=== PATIENT | male | born 1995 | race Two or more races ===

== ENCOUNTER → 2024-05-26 | Outpatient (CLI) | payer BC, SELFPAY ==
--- NOTE | 2024-05-26 08:45 | XR_ITS ---
Examination: Abdomen sonogram, complete Date and time of exam: May 26, 2024 0905 hours INDICATIONS: Elevated liver function tests on laboratory examination performed one month ago, diagnosis testicular carcinoma 2 years ago. Technique: Multiple real-time grayscale transabdominal sonographic images of the abdomen have been obtained. Findings: Normal gallbladder Normal common bile duct 0.5 cm Pancreatic head 2.5 cm Aorta not enlarged Liver 14.4 cm fatty infiltration no focal liver lesions Normal hepatopedal portal venous oh Patent IVC Right kidney 12.7 x 6.8 x 6.8 cm renal cortex 1.8 cm Left kidney 13.9 x 6.0 x 4.7 cm cortex 2.0 cm Mild bilateral renal parenchymal scar formation Spleen 12.7 cm IMPRESSION: Normal gallbladder Fatty liver no focal liver lesions Mild bilateral renal parenchymal scar formation, no hydronephrosis
[2024-05-26 10:44] LABS: Basophils % (Auto) 1 % (0-2.5); Eosinophils # (Auto) 0.1 Thou/mm3 (0.0-0.5); Eosinophils % (Auto) 2 % (0-10); Hemoglobin 15.6 g/dL (13.5-16.0); Immature Granulocytes % (Auto) 1 % (0-0); Immature Granulocytes Auto 0.04 Thou/mm3 (0.00-0.00); Lymphocytes # (Auto) 2.3 Thou/mm3 (1.0-4.8); Lymphocytes % (Auto) 35 % (10-50); Mean Corpuscular HGB Conc 34.7 g/dl (31.0-37.0); Mean Corpuscular Hemoglobin 29.1 pg (25.0-35.0); Mean Corpuscular Volume 84 fL (80-100); Monocytes # (Auto) 0.6 Thou/mm3 (0.0-0.8); Monocytes % (Auto) 9 % (0-12); Neutrophils # (Auto) 3.6 Thou/mm3 (1.8-7.7); Neutrophils % (Auto) 54 % (37-80); Nucleated Red Blood Cell % 0 /100 WBC (0); Platelet Count 223 Thou/mm3 (140-440); RDW Standard Deviation 35.8 fL (35.1-43.9); Red Blood Count 5.37 Miln/mm3 (4.50-5.90); White Blood Count 6.6 Thou/mm3 (3.8-10.6)
[2024-05-26 11:20] LABS: Alanine Aminotransferase 236 U/L (10-49); Albumin, Serum 4.6 gm/dL (3.5-5.0); Albumin/Globulin Ratio 1.8 (1.2-2.2); Alkaline Phosphatase 82 U/L (46-116); Anion Gap 4 (7-16); Aspartate Amino Transferase 89 U/L (0-34); BUN/Creatinine Ratio 10 Ratio (12-20); Bilirubin,Total 0.5 mg/dL (0.3-1.2); Blood Urea Nitrogen 11 mg/dL (9-23); Carbon Dioxide 30.6 mMol/L (20.0-31.0); Chloride 104 mMol/L (98-107); Creatinine (Component) 1.1 mg/dL (0.6-1.3); Globulin 2.5 gm/dL (2.3-3.5); Glucose 99 mg/dL (74-106); Osmolality,Calculated 276 (275-295); Potassium 5.2 mMol/L (3.4-5.1); Sodium 139 mMol/L (136-145); Total Protein 7.1 gm/dL (5.7-8.2); eGFR > 60 See Note
[2024-05-26 12:11] LABS: Hepatitis A Antibody IgM Non Reactive (Non React); Hepatitis B Core Antibody IgM Non Reactive (Non React); Hepatitis B Surface Antigen Non Reactive (Non React); Hepatitis C Antibody Non Reactive (Non React)
== END | disposition home or self-care (01) ==
LOC: CDIM 08:51 → COPL 09:21
PROVIDERS: PCP Nurse Practitioner Family; Referring Provider Nurse Practitioner Family; Visit Provider Radiology Diagnostic Radiology
DX: K76.0 Fatty (change of) liver, not elsewhere classified (principal); N28.89 Other specified disorders of kidney and ureter; C62.12 Malignant neoplasm of descended left testis
CPT/HCPCS: 36415; 76700; 80053; 80074; 85025

== ENCOUNTER 2024-06-14 13:42 | Outpatient (RCR) | payer BC, SELFPAY | END 2024-07-06 23:59 | disposition home or self-care (01) | LOC: SCTC 13:42 | PROVIDERS: PCP Physician Assistant; Referring Provider Physician Assistant; Visit Provider Nurse Practitioner Family | DX: Z08 Encounter for follow-up examination after completed treatment for malignant neoplasm (principal); Z85.47 Personal history of malignant neoplasm of testis; Z90.79 Acquired absence of other genital organ(s); Z92.21 Personal history of antineoplastic chemotherapy; K76.0 Fatty (change of) liver, not elsewhere classified; E66.9 Obesity, unspecified; Z68.36 Body mass index [BMI] 36.0-36.9, adult | CPT/HCPCS: 99212; G0463 ==

== ENCOUNTER 2025-03-23 11:52 | Outpatient (RCR) | payer MEDICAID, SELFPAY ==
--- NOTE | 2025-03-28 00:11 | CTCFLWUP_ITS ---
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 S/p left radical orchiectomy on 04/18/2021. S/p 1 cycle of BEP chemotherapy and 3 cycles of EP chemotherapy (05/12/2021?08/17/2021) CT, no interval metastatic disease, 02/12/2024 Obesity, 260lb, 36.3 BMI REASON FOR TODAY?S VISIT: This is an office follow-up visit for US results and lab results. 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 S/p left radical orchiectomy on 04/18/2021. TREATMENT HISTORY: Care?Plan Start?Date Cycle Day Intent Cisplat?Etoposide?Bleomycin?q21?days?3?cycles 05/22/2021 1 21 Curative?(adjuvant) Cisplat?Etoposide?Bleomycin?q21?days?3?cycles 08/13/2021 1 21 Curative?(primary) HISTORY OF PRESENT ILLNESS: This is an office follow-up visit. Mr. Young is here at [facility] cancer center. He is clinically doing well. LFTs are trending down, US of abdomen shows fatty liver, no liver lesions, 05/26/2024. Patient denies abdominal pain nausea vomiting. Patient reports he rarely drinks alcohol. CT of abdomen on 02/12/2024 showed no interval liver or splenic lesions. Patient r emains asymptomatic. Patient reports good appetite and energy levels. Denies any complaints or concerns. Patient denies recent illness. Denies any cough, leg cramps. Denies any fevers or night sweats. HISTORY: Wilber Young is a 29-year-old ENG speaking male without any significant health problems started to have testicular pain in the early part of February 2021. 02/13/2021: Testicular ultrasound? 03/08/2021: LDH 203. AFP 402.10. Beta-hCG 145. March 2021: Patient had sperm banking done in [place]. 04/03/2021: CT scan of the abdomen and pelvis with IV contrast? 04/03/2021: Chest x-ray PA and lateral views? 04/18/2021: Mr. Young had left radical orchiectomy. 04/27/2021: LDH 193, AFP 135.60, beta-hCG 30. 05/10/2021: LDH 216, AFP 36.4, beta-hCG 38. 05/15/2021: AFP 25.1, beta-hCG 27 05/22/2021: Patient received first cycle of BEP chemotherapy. Beta-hCG 28, AFP 25.3 05/29/2021: Pulmonary function test? 06/18/2021?08/17/2021: Mr. Young received 3 cycles of etoposide and cisplatin chemotherapy. 07/09/2021: AFP 3.7, beta-hCG less than 3 07/12/2021: Repeat pulmonary function test 10/01/2021: AFP less than 1.3, beta-hCG less than 3 02/11/2022: AFP 1.70. Beta-hCG less than 3. 07/12/2022: CT scan of the abdomen and pelvis with IV contrast 07/15/2022: AFP 1.4, beta-hCG pending. 09/18/2022: CT abdomen/pelvis Impression: Multiple stable lymph nodes measuring up to 8 mm as above. No other focal abnormality. 02/04/2023: CT abdomen/pelvis Findings: No focal liver lesions or biliary tract dilatation No gallstones No splenic pancreatic or adrenal mass No renal or ureteral calculi, no hydronephrosis Stable subcentimeter left lateral periaortic lymph nodes, the largest 8 mm 3 mm left common iliac lymph node, 3 mm left external iliac lymph node No bowel obstruction Normal appendix No diverticulitis No prostatomegaly Urinary bladder intact Osseous structures intact IMPRESSION: Stable periaortic and pelvic subcentimeter lymphadenopathy compared to September 18, 2022 11/12/2023: AFP 1.40, Beta-HCG <5 02/12/2024:. Abdomen and pelvis with contrast 02/24/2024: AFP 2.60, beta-hCG <5, AST 57 ALT 148, T. bili 0.7 03/22/2024: Chest x-ray 03/22/2024: AFP 3.50, beta-hCG <5, AST 57, ALT 131, T. bili 0.5 04/27/2024: AFP <1.30, beta-hCG pending, AST 221, ALT 516, T. bili 0.7, alk phos 99 OTHER MEDICAL HISTORY/CONDITIONS: FAMILY HISTORY: ?Clone Family Hx? SOCIAL HISTORY: MEDICATIONS: 1. cyanocobalamin (vitamin B-12) - 1,000 mcg 1 tab Daily 2. [place] 3 - 350-400 mg 1 Capsule Daily 3. Vitamin C - 250 mg 1 tab Daily 4. Vitamin D3 - 400 unit 1 Capsule Daily?Palabra Meds? Medications Last Reconciled by Lin Monroy MA on 03/23/2025 ALLERGIES: No Known Drug Allergies REVIEW OF SYSTEMS: A complete 14-point review of systems was performed and is negative except as noted in interval history. PHYSICAL EXAMINATION: VITAL SIGNS: Temperature?98, B/P?134/93, Oxygen?Saturation?95% Weight?272?lbs PAIN: 0 - No pain ECOG Performance Status: 0 - Asymptomatic and fully active GENERAL APPEARANCE: Appears well, in no apparent distress, appropriately interactive. HEENT: Normocephalic, no temporal wasting, normal conjunctiva, no scleral icterus, normal hearing, lips without lesions, neck normal range of motion. CARDIOVASCULAR: Not assessed. PULMONARY: Normal respiratory effort, no respiratory distress or use of accessory muscles, speaking in full sentences, no tachypnea. EXTREMITIES: No pedal edema or cyanosis. SKIN: Normal skin appearance. NEUROLOGIC: Alert and oriented x4. PSHYCHIATRIC: Appropriate affect, mood normal, behavior normal, intact thought and speech. LABORATORY DATA: I have personally reviewed and interpreted each of the patient?s relevant lab tests, abnormal findings are below: Date 04/27/24 05/26/24 ??WHITE?BLOOD?COUNT?(Thou/mm3) 5.3 6.6 ??RED?BLOOD?COUNT?(Miln/mm3) 5.34 5.37 ??HEMOGLOBIN?(gm/dl) 15.6 15.6 ??HEMATOCRIT?(%) 46.3 45.0 ??PLATELET?COUNT?(Thou/mm3) 230 223 ??NEUTROPHILS?%,?AUTO?(%) 53 54 ??LYMPH?%,?AUTO?(%) 36 35 ??NEUTROPHILS,?AUTO?(Thou/mm3) 2.8 3.6 ??GLUCOSE,RANDOM?(mg/dL) 125?H 99 ??BLOOD?UREA?NITROGEN?(mg/dL) 14 11 ??CREATININE?(mg/dL) 1.10 1.10 ??SODIUM?(mmol/L) 139 139 ??POTASSIUM?(mmol/L) 4.3 5.2?H ??CHLORIDE?(mmol/L) 103 104 ??CrCl?(CandG)?(ml/min) 129.45 129.71 ??AST/SGOT?(Unit/L) 221?H 89?H ??ALT/SGPT?(Unit/L) 516?HH 236?H ??ALKALINE?PHOSPHATASE?(Unit/L) 99 82 ??BILIRUBIN,?TOTAL?(mg/dL) 0.7 0.5 ??PROTEIN?TOTAL?(gm/dl) 7.2 7.1 ??ALBUMIN,?SERUM?(gm/dl) 4.7 4.6 ??GLOBULIN?(gm/dl) 2.5 2.5 ??ALBUMIN/GLOBULIN?RATIO 1.9 1.8 ??CALCIUM,?SERUM?(mg/dL) 10.5 10.0 ??CALCIUM?SERUM?(CORRECTED)?(mg/dL) 10.5?H 10.0 ASSESSMENT/PLAN: 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 and invasion of the epididymis Status post left radical orchiectomy on 04/18/2021 Completed chemotherapy with 3 cycles of BAP Now on monitoring with labsc Patient follows with [facility] RTC with beta-hCG alpha-fetoprotein LDH CBC CMP Patient noted to have elevated alk phos and elevated calcium which has been present on multiple occasions Will evaluate with bone scan to make sure patient do not have any bone mets RTC with labs and imaging ORDERS: Order # Description [id number] Bone Scan, Whole body [id number] Comprehensive Metabolic Panel - 12 + CBC with Auto Diff [id number] AFP + bHCG - Quant (TM) [id number] Lactate Dehydrogenase (LDH) [id number] MD Follow Up 2 Months RETURN TO CLINIC: I reviewed the diagnosis, prognosis, and recommended treatment/procedure options with the patient (and/or their legal licensing representative), including the potential benefits, risks, side effects and alternative therapies. We also discussed the option of no treatment and the possibility of clinical trial participation, if applicable. All questions were addressed, and they demonstrated understanding. They provided informed consent to proceed with the proposed plan of care. BILLING AND COMPLIANCE: I reviewed external records from providers outside my specialty as summarized above. I spent a total of 50 minutes on this patient?s care on the day of their visit excluding time spent related to any billed procedures. This time includes time spent with the patient as well as time spent documenting in the medical record, reviewing patients records and tests, obtaining history, placing orders, communicating with other healthcare professionals, counseling the patient, family or caregiver, and/or care coordination for the diagnoses above. Electronically Signed by: Christopher Montgomery MD T: 12:09 AM CC: PCP: Christopher Montgomery Referring: Christopher Montgomery This document was completed utilizing speech recognition software. Grammatical errors, random word insertions, pronoun errors, and incomplete sentences are an occasional consequence of this system due to software limitations, ambient noise, and hardware issues. Any formal questions or concerns about the content, text or information contained within the body of this dictation should be directly addressed to the provider for clarification.
== END 2025-04-05 23:59 | disposition home or self-care (01) ==
LOC: SCTC 11:52
PROVIDERS: PCP Internal Medicine; Referring Provider Internal Medicine Hematology & Oncology; Visit Provider Internal Medicine Hematology & Oncology
DX: C62.12 Malignant neoplasm of descended left testis (principal); K76.0 Fatty (change of) liver, not elsewhere classified; Z90.79 Acquired absence of other genital organ(s); Z92.21 Personal history of antineoplastic chemotherapy
CPT/HCPCS: 99212; G0463

== ENCOUNTER → 2025-05-03 | Outpatient (CLI) | payer MEDICAID, SELFPAY ==
--- NOTE | 2025-05-03 12:30 | XR_ITS ---
Examination: Bone scan whole body, radioisotope Date and time of exam: May 03, 2025, 8 0821 hours INDICATIONS: Diagnosis malignant neoplasm of left testis 3 years ago, restaging Technique: Study has been performed with intravenous administration of 22.5 mci 99M technetium MDP. Anterior, posterior whole body images are obtained. Images have been obtained including the lower extremities. Findings: Positive for increased abnormal uptake in the proximal to mid tibial shaft on the left IMPRESSION: Positive for increased uptake in the proximal and mid left tibial shaft Recommend correlation with plain films
== END | disposition home or self-care (01) ==
PROVIDERS: PCP Internal Medicine; Referring Provider Internal Medicine Hematology & Oncology; Visit Provider Internal Medicine Hematology & Oncology
DX: R93.7 Abnormal findings on diagnostic imaging of other parts of musculoskeletal system (principal); C62.12 Malignant neoplasm of descended left testis
CPT/HCPCS: 78306; A9503

== ENCOUNTER 2025-05-25 11:43 | Outpatient (RCR) | payer MEDICAID, SELFPAY ==
--- NOTE | 2025-05-25 13:30 | CTCFLWUP_ITS ---
Patient: WILBER YOUNG : 1995 Page 2 of 2 FOLLOW UP NOTE DATE OF SERVICE: 05/25/2025 NAME: WILBER YOUNG ACCOUNT: [id number] : 1995 AGE: 29 INTERVAL HISTORY: Visit summary --29-year-old male here for follow-up. Patient do not have any complaints. Patient's calcium was elevated at last visit and bone scan was completed. Bone scan is concerning for activity in the tibial bone. X-rays ordered as per radiology recommendation RTC within 2 months to review the x-rays ONCOLOGY HISTORY:?[facility] Hx? 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 S/p left radical orchiectomy on 04/18/2021. S/p 1 cycle of BEP chemotherapy and 3 cycles of EP chemotherapy (05/12/2021?08/17/2021) CT, no interval metastatic disease, 02/12/2024 Obesity, 260lb, 36.3 BMI REASON FOR TODAY?S VISIT: This is an office follow-up visit for US results and lab results. 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 S/p left radical orchiectomy on 04/18/2021. TREATMENT HISTORY: Care?Plan Start?Date Cycle Day Intent Cisplat?Etoposide?Bleomycin?q21?days?3?cycles 05/22/2021 1 21 Curative?(adjuvant) Cisplat?Etoposide?Bleomycin?q21?days?3?cycles 08/13/2021 1 21 Curative?(primary) HISTORY OF PRESENT ILLNESS: This is an office follow-up visit. Mr. Young is here at [facility] cancer center. He is clinically doing well. LFTs are trending down, US of abdomen shows fatty liver, no liver lesions, 05/26/2024. Patient denies abdominal pain nausea vomiting. Patient reports he rarely drinks alcohol. CT of abdomen on 02/12/2024 showed no interval liver or splenic lesions. Patient r emains asymptomatic. Patient reports good appetite and energy levels. Denies any complaints or concerns. Patient denies recent illness. Denies any cough, leg cramps. Denies any fevers or night sweats. HISTORY: Wilber Young is a 29-year-old ENG speaking male without any significant health problems started to have testicular pain in the early part of February 2021. 02/13/2021: Testicular ultrasound? 03/08/2021: LDH 203. AFP 402.10. Beta-hCG 145. March 2021: Patient had sperm banking done in [place]. 04/03/2021: CT scan of the abdomen and pelvis with IV contrast? 04/03/2021: Chest x-ray PA and lateral views? 04/18/2021: Mr. Young had left radical orchiectomy. 04/27/2021: LDH 193, AFP 135.60, beta-hCG 30. 05/10/2021: LDH 216, AFP 36.4, beta-hCG 38. 05/15/2021: AFP 25.1, beta-hCG 27 05/22/2021: Patient received first cycle of BEP chemotherapy. Beta-hCG 28, AFP 25.3 05/29/2021: Pulmonary function test? 06/18/2021?08/17/2021: Mr. Young received 3 cycles of etoposide and cisplatin chemotherapy. 07/09/2021: AFP 3.7, beta-hCG less than 3 07/12/2021: Repeat pulmonary function test 10/01/2021: AFP less than 1.3, beta-hCG less than 3 02/11/2022: AFP 1.70. Beta-hCG less than 3. 07/12/2022: CT scan of the abdomen and pelvis with IV contrast 07/15/2022: AFP 1.4, beta-hCG pending. 09/18/2022: CT abdomen/pelvis Impression: Multiple stable lymph nodes measuring up to 8 mm as above. No other focal abnormality. 02/04/2023: CT abdomen/pelvis Findings: No focal liver lesions or biliary tract dilatation No gallstones No splenic pancreatic or adrenal mass No renal or ureteral calculi, no hydronephrosis Stable subcentimeter left lateral periaortic lymph nodes, the largest 8 mm 3 mm left common iliac lymph node, 3 mm left external iliac lymph node No bowel obstruction Normal appendix No diverticulitis No prostatomegaly Urinary bladder intact Osseous structures intact IMPRESSION: Stable periaortic and pelvic subcentimeter lymphadenopathy compared to September 18, 2022 11/12/2023: AFP 1.40, Beta-HCG <5 02/12/2024:. Abdomen and pelvis with contrast 02/24/2024: AFP 2.60, beta-hCG <5, AST 57 ALT 148, T. bili 0.7 03/22/2024: Chest x-ray 03/22/2024: AFP 3.50, beta-hCG <5, AST 57, ALT 131, T. bili 0.5 04/27/2024: AFP <1.30, beta-hCG pending, AST 221, ALT 516, T. bili 0.7, alk phos 99 OTHER MEDICAL HISTORY/CONDITIONS: FAMILY HISTORY: ?Clone Family Hx? SOCIAL HISTORY: MEDICATIONS: 1. cyanocobalamin (vitamin B-12) - 1,000 mcg 1 tab Daily 2. [place] 3 - 350-400 mg 1 Capsule Daily 3. Vitamin C - 250 mg 1 tab Daily 4. Vitamin D3 - 400 unit 1 Capsule Daily?[facility]ra Meds? Medications Last Reconciled by Lin Drew MD on 05/25/2025 ALLERGIES: No Known Drug Allergies REVIEW OF SYSTEMS: A complete 14-point review of systems was performed and is negative except as noted in interval history. PHYSICAL EXAMINATION:?[facility] PE? VITAL SIGNS: Temperature?98.6, B/P?132/86, Oxygen?Saturation?96% Weight?275?lbs PAIN: 0 - No pain ECOG Performance Status: 0 - Asymptomatic and fully active GENERAL APPEARANCE: Appears well, in no apparent distress, appropriately interactive. HEENT: Normocephalic, no temporal wasting, normal conjunctiva, no scleral icterus, normal hearing, lips without lesions, neck normal range of motion. CARDIOVASCULAR: Not assessed. PULMONARY: Normal respiratory effort, no respiratory distress or use of accessory muscles, speaking in full sentences, no tachypnea. EXTREMITIES: No pedal edema or cyanosis. SKIN: Normal skin appearance. NEUROLOGIC: Alert and oriented x4. PSHYCHIATRIC: Appropriate affect, mood normal, behavior normal, intact thought and speech. LABORATORY DATA: I have personally reviewed and interpreted each of the patient?s relevant lab tests, abnormal findings are below: Date 04/27/24 05/26/24 ??WHITE?BLOOD?COUNT?(Thou/mm3) 5.3 6.6 ??RED?BLOOD?COUNT?(Miln/mm3) 5.34 5.37 ??HEMOGLOBIN?(gm/dl) 15.6 15.6 ??HEMATOCRIT?(%) 46.3 45.0 ??PLATELET?COUNT?(Thou/mm3) 230 223 ??NEUTROPHILS?%,?AUTO?(%) 53 54 ??LYMPH?%,?AUTO?(%) 36 35 ??NEUTROPHILS,?AUTO?(Thou/mm3) 2.8 3.6 ??GLUCOSE,RANDOM?(mg/dL) 125?H 99 ??BLOOD?UREA?NITROGEN?(mg/dL) 14 11 ??CREATININE?(mg/dL) 1.10 1.10 ??SODIUM?(mmol/L) 139 139 ??POTASSIUM?(mmol/L) 4.3 5.2?H ??CHLORIDE?(mmol/L) 103 104 ??CrCl?(CandG)?(ml/min) 129.45 129.71 ??AST/SGOT?(Unit/L) 221?H 89?H ??ALT/SGPT?(Unit/L) 516?HH 236?H ??ALKALINE?PHOSPHATASE?(Unit/L) 99 82 ??BILIRUBIN,?TOTAL?(mg/dL) 0.7 0.5 ??PROTEIN?TOTAL?(gm/dl) 7.2 7.1 ??ALBUMIN,?SERUM?(gm/dl) 4.7 4.6 ??GLOBULIN?(gm/dl) 2.5 2.5 ??ALBUMIN/GLOBULIN?RATIO 1.9 1.8 ??CALCIUM,?SERUM?(mg/dL) 10.5 10.0 ??CALCIUM?SERUM?(CORRECTED)?(mg/dL) 10.5?H 10.0 ASSESSMENT/PLAN:?Dany Montgomery Assessment/Plan? 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 and invasion of the epididymis Status post left radical orchiectomy on 04/18/2021 Completed chemotherapy with 3 cycles of BAP Now on monitoring with labsc Patient follows with [facility] RTC with beta-hCG alpha-fetoprotein LDH CBC CMP Patient noted to have elevated alk phos and elevated calcium which has been present on multiple occasions Bone scan is concerning for activity in the tibial midshaft X-rays ordered RTC with results ORDERS: Order # Description [id number] Plain Films [id number] MD Follow Up 2 Months [id number] AFP + bHCG - Quant (TM) + MD Follow Up 6 Month [id number] Lactate Dehydrogenase (LDH) RETURN TO CLINIC: I reviewed the diagnosis, prognosis, and recommended treatment/procedure options with the patient (and/or their legal telesales representative), including the potential benefits, risks, side effects and alternative therapies. We also discussed the option of no treatment and the possibility of clinical trial participation, if applicable. All questions were addressed, and they demonstrated understanding. They provided informed consent to proceed with the proposed plan of care. BILLING AND COMPLIANCE: I reviewed external records from providers outside my specialty as summarized above. I spent a total of 50 minutes on this patient?s care on the day of their visit excluding time spent related to any billed procedures. This time includes time spent with the patient as well as time spent documenting in the medical record, reviewing patients records and tests, obtaining history, placing orders, communicating with other healthcare professionals, counseling the patient, family or caregiver, and/or care coordination for the diagnoses above. Electronically Signed by: Christopher Montgomery MD T: 1:27 PM CC: Cata?MORENO Jones PCP: Cata Jones Referring: Cata Jones This document was completed utilizing speech recognition software. Grammatical errors, random word insertions, pronoun errors, and incomplete sentences are an occasional consequence of this system due to software limitations, ambient noise, and hardware issues. Any formal questions or concerns about the content, text or information contained within the body of this dictation should be directly addressed to the provider for clarification.
== END 2025-06-05 23:59 | disposition home or self-care (01) ==
LOC: SCTC 11:43
PROVIDERS: PCP Internal Medicine; Referring Provider Internal Medicine; Visit Provider Internal Medicine Hematology & Oncology
DX: Z08 Encounter for follow-up examination after completed treatment for malignant neoplasm (principal); Z85.47 Personal history of malignant neoplasm of testis; Z90.79 Acquired absence of other genital organ(s); Z92.21 Personal history of antineoplastic chemotherapy; R94.8 Abnormal results of function studies of other organs and systems; R74.8 Abnormal levels of other serum enzymes; E83.52 Hypercalcemia
CPT/HCPCS: 99212; G0463